=== PATIENT | male | born 1955 | race Caucasian/White ===

== ENCOUNTER 2017-03-09 14:33 | Emergency (ER) | payer BC ==
--- NOTE | 2017-03-09 15:27 | EDM.PDOC ---
ED HPI GENERAL MEDICAL PROBLEM - General Chief Complaint: Back Pain or Injury Stated Complaint: fall from 7ft height Time Seen by Provider: 03/09/17 15:10 Source of Information: Reports: Patient, Family, RN History Limitations: Reports: No Limitations - History of Present Illness INITIAL COMMENTS - FREE TEXT/NARRATIVE: 61 yr male presents with fall from 6 feet, abrasion to top of head, chest pain and back pain. No pain to legs or abdomen. Initially pain to right calf. Pt is alert and talkative with c-collar in place. Neuro check intact. no blood to ears, nose or mouth. Pt did ambulate at home to get into car. Fell onto head and back to asphalt bricks to ground. Thinks he hit his leg on the ladder during the fall. back and left side of sternum Pain Score (Numeric/FACES): 8 - Related Data Allergies Allergy/AdvReac Type Severity Reaction Status Date / Time No Known Allergies Allergy Verified 03/09/17 15:02 Home Meds: Home Meds Methocarbamol [Robaxin] 500 mg PO TID PRN #21 tab 03/09/17 [Rx] Naproxen 500 mg PO Q12HR PRN 03/09/17 [History] Ranitidine [Zantac] 150 mg PO BID PRN 03/09/17 [History] ED ROS GENERAL - Review of Systems Review Of Systems: See Below Constitutional: Reports: No Symptoms HEENT: Reports: No Symptoms Respiratory: Reports: No Symptoms Cardiovascular: Reports: No Symptoms, Chest Pain GI/Abdominal: Reports: No Symptoms Musculoskeletal: Reports: Back Pain Skin: Reports: Other (abrasion to head. ) Neurological: Reports: Headache Psychiatric: Reports: No Symptoms ED EXAM, HEAD INJURY - Physical Exam Exam: See Below Exam Limited By: No Limitations General Appearance: Alert, No Apparent Distress Head: Scalp Abrasions, Scalp Tenderness Ears: Normal External Exam Nose: Normal Inspection Throat/Mouth: Normal Inspection, Normal Lips Neck: Non-Tender, Normal Alignment, Normal Inspection Respiratory: No Respiratory Distress, Lungs Clear GI/Abdominal Exam: Normal Bowel Sounds, Soft, Non-Tender Extremities: Normal Inspection, Normal Capillary Refill Neurologic: Alert, Oriented x 3 Skin: Normal Color, Warm/Dry - Aleksander Coma Score Best Eye Response (Aleksander): (4) Open Spontaneously Best Verbal Response (Salome): (5) Oriented Best Motor Response (Salome): (6) Obeys Commands (15) Course - Vital Signs Last Recorded V/S: Last Vital Signs Temp 97.7 F 03/09/17 15:04 Pulse 73 03/09/17 15:15 Resp 20 03/09/17 15:04 BP 159/99 H 03/09/17 15:15 Pulse Ox 99 03/09/17 15:15 - Orders/Labs/Meds Orders: Active Orders 24 hr Category Date Time Status Cervical Spine wo Cont [CT] Stat Exams 03/09/17 16:25 Taken Chest 2V [CR] Stat Exams 03/09/17 15:18 Taken Head wo Cont [CT] Stat Exams 03/09/17 15:17 Taken Thoracic Spine wo Cont [CT] Stat Exams 03/09/17 16:25 Taken Labs: Laboratory Tests 03/09/17 03/09/17 03/09/17 Range/Units 15:31 15:31 16:30 WBC 9.3 (4.0-11.0) K/uL RBC 5.40 (4.50-6.50) M/uL Hgb 15.4 (13.0-18.0) g/dL Hct 45.9 (40.0-54.0) % MCV 85 (76-96) fL MCH 28.5 (27.0-32.0) pg MCHC 33.6 (31.0-35.0) g/dL RDW 13.3 (11.0-16.0) % Plt Count 208 (150-400) K/uL MPV 10.1 H (6.0-10.0) fL Neut % (Auto) 76.6 H (45.0-70.0) % Lymph % (Auto) 13.5 L (20.0-40.0) % [place] % (Auto) 8.6 (3.0-10.0) % Eos % (Auto) 0.9 L (1.0-5.0) % Baso % (Auto) 0.4 (0.0-0.5) % Neut # (Auto) 7.16 (2.00-7.50) K/uL Lymph # (Auto) 1.26 L (1.50-4.00) K/uL [place] # (Auto) 0.80 (0.20-0.80) K/uL Eos # (Auto) 0.08 (0.04-0.40) K/uL Baso # (Auto) 0.04 (0.02-0.10) K/uL Sodium 141 (136-145) mmol/L Potassium 4.2 (3.5-5.1) mmol/L Chloride 103 (98-107) mmol/L Carbon Dioxide 28.8 (21.0-32.0) mmol/L Anion Gap 13.4 (5.0-15.0) mmol/L BUN 17 (8-26) mg/dL Creatinine 1.17 (0.70-1.30) mg/dL Est Cr Clr Drug Dosing 55.52 mL/min Estimated GFR (MDRD) > 60 (>60) MLS/MIN BUN/Creatinine Ratio 14.5 (6-25) Glucose 109 H (74-100) mg/dL Calcium 9.1 (8.5-10.1) mg/dL Urine Color Yellow Urine Appearance Clear (CLEAR) Urine pH 5.5 (5.0-8.0) Ur Specific [place] 1.025 (1.003-1.030) Urine Protein Trace H (NEGATIVE) mg/dL Urine Glucose (UA) Negative (NEGATIVE) mg/dL Urine Ketones Negative (NEGATIVE) mg/dL Urine Occult Blood Moderate H (NEGATIVE) Urine Nitrite Negative (NEGATIVE) Urine Bilirubin Negative (NEGATIVE) Urine Urobilinogen 0.2 (0.2-1.0) E.U./dL Ur Leukocyte Esterase Negative (NEGATIVE) Urine RBC 0-5 H /HPF Urine WBC Not seen /HPF Ur Squamous Epith Cells Rare /HPF Uric Acid Crystals Rare /HPF Urine Bacteria Not seen /HPF - Re-Assessments/Exams Free Text/Narrative Re-Assessment/Exam: 03/09/17 17:[address], chest x-ray, C-spine and thoracic spine CT completed, no fractures, no acute brain abnormality, no hemorrhage, no edema with preliminary studies reports. Pt remains talkative and at side. States pain to chest and back and top of head, no other pain. Hematuria noted per urinalysis. Discussed watching for any changes over next few days and report to PCP in 2 days for follow-up with U/A. Recommend use of Robaxin 500 mg tid as needed for muscle relaxer, may use Naprosyn bid as needed or Tylenol or Ibuprofen, caution to take medications with food. Rest and plenty of fluids to keep urine clear light yellow. Cough and deep breathe every 2 hour as needed to prevent any development of respiratory problems. Wash hair gently with abrasions to scalp. Report to ER sooner if any changes of pain to abdomen or bleeding to urine or changes in mentation. Departure - Departure Time of Disposition: 17:08 Disposition: Home, Self-Care 01 Condition: Good Clinical Impression: Head injury - Discharge Information Prescriptions: Methocarbamol [Robaxin] 500 mg PO TID PRN #21 tab PRN Reason: Pain Instructions: Cryotherapy, [id number], Heat Therapy Referrals: PCP,None [Primary Care Provider] - Forms: ED Department Discharge Additional Instructions: Return to your primary provider on Tuesday to have a urine re-tested, there was a moderate amount of blood in your urine. Motrin or Naprosyn OTC as needed for pain. Muscle relaxer can be taken as needed. - My Orders Last 24 Hours: My Active Orders 03/09/17 15:17 Head wo Cont [CT] Stat 03/09/17 15:18 Chest 2V [CR] Stat 03/09/17 16:25 Cervical Spine wo Cont [CT] Stat Thoracic Spine wo Cont [CT] Stat - Assessment/Plan Last 24 Hours: My Active Orders 03/09/17 15:17 Head wo Cont [CT] Stat 03/09/17 15:18 Chest 2V [CR] Stat 03/09/17 16:25 Cervical Spine wo Cont [CT] Stat Thoracic Spine wo Cont [CT] Stat
--- NOTE | 2017-03-09 20:29 | CT ---
DATE OF SERVICE: 03/09/2017 CLINICAL DATA: Head injury. UNENHANCED BRAIN CT: Multislice acquisition through the brain without IV contrast was performed. No masses or mass effect. No intracranial hemorrhage. No evidence of acute or subacute infarct. No osseous abnormalities. IMPRESSION: No acute intracranial abnormalities. [id number] [facility]
--- NOTE | 2017-03-09 20:32 | CR ---
DATE OF SERVICE: 03/09/2017 CLINICAL DATA: Injury. PA AND LATERAL CHEST: No priors. The heart size is normal. The lungs are clear. No pneumothorax. No pleural effusions. There is mild degenerative disc disease throughout the thoracic spine. IMPRESSION: No acute abnormalities. [id number] [facility]
--- NOTE | 2017-03-09 20:36 | CT ---
DATE OF SERVICE: 03/09/2017 CLINICAL DATA: Fall from ladder, pain. CERVICAL SPINE CT: Multislice acquisition from the base of the skull to T2 was performed. Axial images and sagittal and coronal reformations are reviewed. The vertebral bodies are of average height and in good alignment. No acute fracture or dislocation. No lytic or blastic bone lesions. There is mild degenerative disc disease at multiple levels. No significant central or foraminal stenosis. The right lobe of the thyroid is enlarged and contains a hypodense lesion. Thyroid ultrasound is recommended. IMPRESSION: No acute abnormalities. Abnormal thyroid. Recommend thyroid ultrasound. [id number] [facility]
--- NOTE | 2017-03-09 20:39 | CT ---
DATE OF SERVICE: 03/09/2017 CLINICAL DATA: Fall from ladder, pain. THORACIC SPINE CT: Multislice axial acquisition was performed. Axial images and sagittal and coronal reformations are reviewed. The vertebral bodies are of average height and in good alignment. No acute fracture or dislocation. No focal lytic or blastic bone lesions. There is degenerative disc disease throughout the thoracic spine. No significant central or foraminal stenosis. The soft tissues are unremarkable. IMPRESSION: No acute abnormalities. [id number] [facility]
== END 2017-03-09 17:09 | disposition home or self-care (01) ==
LOC: LB.ED 14:33
DX: S09.90XA Unspecified injury of head, initial encounter (principal); S00.01XA Abrasion of scalp, initial encounter; W17.89XA Other fall from one level to another, initial encounter
CPT/HCPCS: 36415; 70450; 71020; 72125; 72128; 80048; 81001; 85025; 99285-25

== ENCOUNTER 2024-07-05 11:17 | Emergency (ER) | payer BC, MEDICARE | END 2024-07-05 11:52 | disposition home or self-care (01) | LOC: LB.ED 11:17 | DX: T16.1XXA Foreign body in right ear, initial encounter (principal); Z87.891 Personal history of nicotine dependence; Z79.899 Other long term (current) drug therapy; W44.9XXA Unspecified foreign body entering into or through a natural orifice, initial encounter | CPT/HCPCS: 69200; 99282; 99282-25 ==